=== PATIENT | female | born 1990 | race Caucasian/White ===

== ENCOUNTER → 2017-05-24 09:21 | Observation (INO) ==
--- NOTE | 2017-05-24 08:44 | OB/GYN History & Physical ---
Date of Encounter: 05/24/17 Time of Encounter: 08:35 Assessment and Plan (1) premature rupture of membranes Current visit: Yes Status: Acute Patient presents at 26w5d with nitrazine positive test of fluid leakage. No contractions. -Patient is a patient of Dr. Plascencia. -IV Penicillin -PO zithromax -IV Steroids -IVF -CBC -Transfer to [facility] Qualifiers: PROM onset of labor timing: unspecified duration between rupture of membranes and onset of labor Qualified Code(s): O42.919 - premature rupture of membranes, unspecified as to length of time between rupture and onset of labor, unspecified trimester History of Present Illness Chief complaint: premature rupture of membranes HPI: Ms. Lezama is a 26 year old female that is currently 26w5d who presents to [facility] with premature rupture of membranes. Patient reports SROM at 0500. She denies any history of complications during including this patient reports PMHx of PCOS and insulin resistance Her last was term. She denies any contractions or bleeding. She denies any current headaches, dizziness, RUQ pain, nausea, vomitting, or diarrhea. Patient does report a few week history of intermittent dizziness with headaches, although none currently. Patient reports having sexual intercourse last night at 9am. Nitrazine test positive, positive pooling with speculum exam. Ms. Lezama is a patient of Dr. Plascencia at [facility]. Past Med Surg Social Fam HX - Past Medical History Attestation: Yes The following information was validated with the patient. Source: patient Medical history: other (PCOS and insulin resistane) Psychiatric history: no psych history - Past Surgical History Surgical History: no surgical history - Social History Smoking Status: Former smoker Smokeless Tobacco Status: No Alcohol use: none Drug use: none Activity Level: Independent ambulation Recent Out of Country Travel Within the Last 8 Weeks: No Exposure or Possible Exposure to Illness During Travel: No - Family History Mother Living Status: Still Living Hx Family Cardiac Disorders: Yes (HTN) Hx Family Respiratory Disorders: No Hx Family Cancer: Yes (skin) Hx Family GI Disorders: No Hx Family Genitourinary Disorders: No Hx Family Endocrine Disorder: No Hx Family Musculoskeletal Disorders: No Hx Family Neuromuscular Disorders: No Hx Family Neurologic Disorders: No Hx Family HEENT Disorders: No Hx Family Autoimmune Disorders: No Hx Family Reproductive Disorders: No Hx Family Psychosocial Disorders: No Hx Family Medical Disorders: Yes (RA) Obstetrical History - Pregnancies : 2 Para: 1 Term: 1 : 0 Ab's: 0 Livin Medications and Allergies Vit #108/Iron/FA [ One Tablet] 1 each PO DAILY 05/24/17 [ History] 3 Allergy/AdvReac Type Severity Reaction Status Date / Time No Known Allergies Allergy Verified 04/15/17 15:26 Review of System OB All systems PM: reviewed and no additional remarkable complaints except as stated - Constitutional Constitutional ROS IM: no chills, no fever(s) - Cardiovascular Cardiovascular: no chest pain, no chest pain with activity, no dyspnea on exertion - Respiratory Respiratory: no cough, no dyspnea, no wheezing - Gastrointestinal Gastrointestinal: no abdominal pain, no diarrhea, no loose stools, no nausea - Genitourinary Genitourinary: no dyspareunia, no dysuria, no pelvic pain, no urinary frequency , no urinary hesitancy - Integumentary Integumentary: no pruritus, no rash - Neurological Nerological: no abnormal gait, no abnormal hearing, no dizziness, no other visual disturbances Exam - Constitutional Constitutional: well developed, well nourished, no acute distress - HEENT HEENT: Normocephaly, Mucus Membranes Moist - Lungs Respiratory exam: CTAB - Cardiovascular Cardiovascular exam: +S1, +S2, tachycardia - Abdomen Abdomen: Present: bowel sounds normal, gravid, non tender - Extremities Extremities exam: radial pulses palpable and symmetrical Deep Tendon Reflex Grade: 2+ Normal - Cervix Dilation: 0 (Closed Internal Os per RN) Effacement: 0 (Per RN) Station: -3 - Uterus Uterus exam: Present: normal size (gravid), normal contour Results Result Diagrams: 05/24/17 08:36 All other labs normal. - Attending Attestation I examined this patient and my medical decision-making was reviewed with the Resident Physician. I agree with the documented findings, disposition and treatment plan as described except to the extent set forth below. DAGO Lawler
[2017-05-24 08:53] LABS: Basophils % 0.3 %; Eosinophils # 0.1 K/mcL (0.0-0.6); Eosinophils % 0.8 %; Hematocrit 36.7 % (35.3-44.9); Hemoglobin 12.4 g/dL (11.5-15.4); Immature Granulocytes % 1.2 % (0-4); Lymphocytes # 2.4 K/mcL (0.6-4.6); Lymphocytes % 15.3 %; Mean Corpuscular HGB Conc 33.8 g/dL (31.6-35.5); Mean Corpuscular Hemoglobin 29.4 pg (28.0-33.3); Mean Platelet Volume 10.2 fL (9.4-12.4); Monocytes % 6.1 %; Platelet Count 224 K/mcL (140-400); Red Blood Count 4.22 M/mcL (3.82-4.97); Red Cell Distribution Width 12.9 % (11.5-14.5); Segmented Neutrophils % 76.3 %
--- NOTE | 2017-05-24 08:55 | Discharge Summary ---
Date of Encounter: 05/24/17 Time of Encounter: 09:21 - Discharge Diagnosis (1) premature rupture of membranes Priority: Primary Status: Acute - Discharge Medications Home Medications: Vit #108/Iron/FA [ One Tablet] 1 each PO DAILY 05/24/17 [ History] Allergies/Adverse Reactions: 3 Allergy/AdvReac Type Severity Reaction Status Date / Time No Known Allergies Allergy Verified 04/15/17 15:26 Data Procedures and tests throughout hospitalization: Laboratory Tests 05/24/17 08:36 WBC 15.6 H RBC 4.22 Hgb 12.4 Hct 36.7 MCV 87.0 MCH 29.4 MCHC 33.8 RDW 12.9 Plt Count 224 MPV 10.2 Immature Gran % 1.2 Seg Neutrophils % 76.3 Lymphocytes % 15.3 Monocytes % 6.1 Eosinophils % 0.8 Basophils % 0.3 Neutrophils # 12.0 H Lymphocytes # 2.4 Monocytes # 1.0 Eosinophils # 0.1 Basophils # 0.0 Labs on day of discharge: Labs from last 24 hours 05/24/17 08:36 WBC 15.6 H RBC 4.22 Hgb 12.4 Hct 36.7 MCV 87.0 MCH 29.4 MCHC 33.8 RDW 12.9 Plt Count 224 MPV 10.2 Immature Gran % 1.2 Seg Neutrophils % 76.3 Lymphocytes % 15.3 Monocytes % 6.1 Eosinophils % 0.8 Basophils % 0.3 Neutrophils # 12.0 H Lymphocytes # 2.4 Monocytes # 1.0 Eosinophils # 0.1 Basophils # 0.0 Date of admission: 05/24/17 07:59 Primary care physician: Leigh Breaux CNP Discharging clinician: Rea Love Anticipated date of discharge: 05/24/17 - Patient Status Disposition: Transfer Critical Access Hosp Condition: Good Functional capacity at discharge: independent ambulation Overall status at discharge: patient is back to baseline - Discharge Instructions Follow Up With: Leigh Breaux CNP [Primary Care Provider] - Hospital Course COMPLAINT INSPECTOR Time Attestation: Total time spent providing and/or coordinating discharge services: Time Spent: Less than 30 minutes Exam - Constitutional General appearance IM: A&O X 3, pleasant, answers questions appropriately (FHR 150 bpm moderate variability no contractions noted.) - VTE Reasons for not Prescribing Prophylaxis: Treatment not Indicated - Low risk for VTE - Attending Attestation I examined this patient and my medical decision-making was reviewed with the Resident Physician. I agree with the documented findings, disposition and treatment plan as described except to the extent set forth below. Rea Love CNM
[~2017-05-24 09:21] MED LIST: Ampicillin 1,000 MG in 0.9 % Sodium Chloride Mini Bag 100 ML IVPB SCH; Azithromycin 250 MG TABLET PO SCH; Betamethasone Acet/SodPhos 6 MG/ML MDV IM SCH; Penicillin G Potassium 5,000,000 UNIT in D5% in Water (Mini-Bag+) 100 ML IVPB ONE; Ringers Solution, Lactated 1,000 ML IVC ONE; Ringers Solution, Lactated 1,000 ML ONE
== END | disposition short-term general hospital (02) ==
LOC: 1NENULAB
PROVIDERS: ADMIT Obstetrics & Gynecology; ATTEND Obstetrics & Gynecology